=== PATIENT | male | born 1975 | race Hispanic/Latino ===

== ENCOUNTER 2022-04-07 13:31 | Outpatient (CLI) | payer OTHER | END 2022-04-07 13:32 | disposition home or self-care (01) | LOC: RAD 13:31 | PROVIDERS: ATTEND Nurse Practitioner Family | DX: R13.10 Dysphagia, unspecified (principal); R63.30 Feeding difficulties, unspecified; J69.0 Pneumonitis due to inhalation of food and vomit | CPT/HCPCS: 74230 ==